=== PATIENT | male | born 1950 | race Caucasian/White ===

== ENCOUNTER 2019-08-22 16:20 | Emergency (ER) | payer MEDICARE, OTHER ==
--- NOTE | 2019-08-22 16:28 | ED Physician Documentation ---
PD HPI OPHTHO - Stated complaint Stated Complaint: PEROXIDE IN RT EYE - History obtained from History obtained from: Patient - History of Present Illness Timing - onset: How many hours ago (6) Timing - duration: Hours (6) Timing - details: Abrupt onset, Still present Location: Right Quality / character: Burning Associated symptoms: Redness, Swelling, Decreased vision. No: FB sensation, Photophobia, Double vision Contributing factors: Wears contacts, Other (he put some dilute 3% peroxide into right eye and felt burning feeling. He thought he was reaching for regular saline eye drops. The peroxide is used in his contacts tube cleaner. He took out the contact and flushed eye with saline eye drops. Continues with burning and redness/swelling of conjunctiva still. He thought it would get better after an hour or two.). No: Exposed to conjunctivitis, Recent URI Similar symptoms before: Has not had sx before Review of Systems Constitutional: denies: Fever Eyes: reports: Decreased vision (says it seems slightly blurry but does not have contact in as well.), Irritation. denies: Photophobia, Discharge Nose: denies: Rhinorrhea / runny nose, Congestion Throat: denies: Sore throat PD PAST MEDICAL HISTORY - Past Medical History Cardiovascular: None Respiratory: None Neuro: None Endocrine/Autoimmune: None Psych: Depression - Past Surgical History Past Surgical History: Yes - Present Medications Home Medications: Ambulatory Orders Medication Instructions Recorded Confirmed Pramipexole Di-HCl [Mirapex] 0.75 mg PO DAILY 08/20/13 08/20/13 buPROPion [Wellbutrin Xl] 150 mg PO DAILY 08/20/13 08/20/13 Erythromycin Base [Erythromycin 1 applic OP QID #3.5 oint...g. 08/22/19 Ophthalmic Ointment] Ketorolac 0.45% Ophth Drops 1 each OPTH QID #1 bottle 08/22/19 [Acuvail] - Allergies Allergies/Adverse Reactions: Allergies Allergy/AdvReac Type Severity Reaction Status Date / Time No Known Drug Allergies Allergy Verified 08/22/19 16:29 - Social History Does the pt smoke?: No Smoking Status: Never smoker Does the pt drink ETOH?: No Does the pt have substance abuse?: No - Immunizations Immunizations are current?: Yes PD ED PE NORMAL - Vitals Vital signs reviewed: Yes - General General: Alert and oriented X 3, No acute distress, Well developed/nourished - HEENT HEENT: PERRL, EOMI, Ears normal, Pharynx benign - Neck Neck: Supple, no meningeal sign, No adenopathy PD ED PE EXPANDED - Eyes Eyes: Injected conj/sclera, Anterior chambers clear, Normal fundi. No: Eyelid swelling, Exudate, Corneal FB, Corneal ulcer, Fluorescein uptake Results - Vitals Vitals: Vital Signs - 24 hr 08/22/19 16:29 Temperature 36.9 C Heart Rate 60 Respiratory 18 Rate Blood Pressure 155/82 H O2 Saturation 96 Oxygen O2 Source Room air PD MEDICAL DECISION MAKING - ED course Complexity details: considered differential (he says discomfort resolves with proparacaine drops. ), d/w patient Departure - Departure Disposition: 01 Home, Self Care Clinical Impression: Acute chemical conjunctivitis Qualifiers: Laterality: right Qualified Code(s): H10.211 - Acute toxic conjunctivitis, right eye Condition: Stable Record reviewed to determine appropriate education?: Yes Instructions: ED Chemical Conjunctivitis Follow-Up: Jeferson Galarza MD [Primary Care Provider] - Prescriptions: Erythromycin Base [Erythromycin Ophthalmic Ointment] 1 applic OP QID #3.5 oint...g. Ketorolac 0.45% Ophth Drops [Acuvail] 1 each OPTH QID #1 bottle Comments: No contacts in the eye until fully resolved, likely 2 to 3 days. You can use some eye ointment to provide comfort of the eye while this is healing. You could use anti-inflammatory eyedrops a few times a day as well. Tylenol or ibuprofen if needed for discomfort. Recheck if not improved well within 1 to 2 days and fully resolved within 2 to 3 days. Discharge Date/Time: 08/22/19 17:19
[2019-08-22 16:31] VITALS: BP 155/82
[2019-08-22] MEDS ORDERED: IBUPROFEN 600 MG TABLET PO STA (17:01)
[2019-08-22] MEDS ORDERED: ACETAMINOPHEN 325 MG TABLET PO STA (17:02)
[2019-08-22] MEDS ORDERED: ERYTHROMYCIN OPHTH OINT 1 GM TUBE RIGHTEYE STA (17:02)
== END 2019-08-22 17:19 | disposition home or self-care (01) ==
LOC: ED 16:20
DX: H10.211 Acute toxic conjunctivitis, right eye (principal)
CPT/HCPCS: 99282; 99283; A9270; J3490

== ENCOUNTER 2020-08-27 15:28 | Outpatient (CLI) | payer MEDICARE, OTHER | END 2020-08-27 15:29 | disposition home or self-care (01) | LOC: COV 15:28 | PROVIDERS: ATTEND Family Medicine | DX: Z20.828 Contact with and (suspected) exposure to other viral communicable diseases (principal) ==